=== PATIENT | female | born 1995 | race Two or more races ===

== ENCOUNTER 2019-06-26 11:56 | Emergency (ER) | payer SELFPAY ==
[2019-06-26] MEDS ORDERED: Lidocaine 1% w/Epinephrine 1:100K 20 ML VIAL ONE (12:21)
== END 2019-06-26 13:14 | disposition home or self-care (01) ==
LOC: ERS 11:56
DX: N75.0 Cyst of Bartholin's gland (principal); F17.210 Nicotine dependence, cigarettes, uncomplicated
CPT/HCPCS: 56420